=== PATIENT | male | born 1955 | race Caucasian/White ===

== ENCOUNTER 2023-08-28 08:37 | Emergency (ER) | payer MEDICARE, MEDICAID ==
[~2023-08-28] VITALS: Ht 182.9 cm; Wt 90.9 kg
[2023-08-28 09:14] VITALS: TEMP 99.5
[2023-08-28 14:32] VITALS: BP 122/63; PULSE 77; O2SAT 99
[2023-08-28] MEDS ORDERED: ketorolac trometh inj. 60 MG/2 ML VIAL IM ONE (15:10)
[2023-08-28 15:13] VITALS: RESP 20
== END 2023-08-28 15:52 | disposition home or self-care (01) ==
LOC: ER 08:38
DX: R53.83 Other fatigue (principal); R53.81 Other malaise; F17.200 Nicotine dependence, unspecified, uncomplicated
CPT/HCPCS: 96372; 99283; J1885

== ENCOUNTER 2023-09-28 01:16 | Emergency (ER) | payer MEDICAID, MEDICARE ==
[~2023-09-28] VITALS: Ht 193 cm; Wt 86.4 kg
[2023-09-28 01:20] VITALS: BP 151/76; PULSE 86; RESP 16; TEMP 98.1; O2SAT 97
== END 2023-09-28 02:17 ==
LOC: ER 01:17
DX: J18.9 Pneumonia, unspecified organism (principal); R05.9 Cough, unspecified; R59.1 Generalized enlarged lymph nodes; J44.9 Chronic obstructive pulmonary disease, unspecified; I50.9 Heart failure, unspecified; Z88.4 Allergy status to anesthetic agent; Z88.5 Allergy status to narcotic agent
CPT/HCPCS: 99283

== ENCOUNTER 2023-10-07 00:09 | Emergency (ER) | payer MEDICARE ==
[~2023-10-07] VITALS: Ht 193 cm; Wt 81.9 kg
[2023-10-07 00:33] VITALS: TEMP 98.2
[2023-10-07 08:35] VITALS: BP 113/70; PULSE 73; RESP 16; O2SAT 98
== END 2023-10-07 10:01 | disposition home or self-care (01) ==
LOC: ER 00:10
DX: Z00.00 Encounter for general adult medical examination without abnormal findings (principal); Z59.00 Homelessness unspecified; I50.9 Heart failure, unspecified; J44.9 Chronic obstructive pulmonary disease, unspecified; Z88.4 Allergy status to anesthetic agent; Z88.5 Allergy status to narcotic agent; Y92.89 Other specified places as the place of occurrence of the external cause
CPT/HCPCS: 99284

== ENCOUNTER 2023-10-20 11:00 | Emergency (ER) | payer MEDICARE ==
[~2023-10-20] VITALS: Ht 185.4 cm; Wt 75.4 kg
[2023-10-20 11:30] VITALS: BP 134/94; PULSE 99; RESP 18; TEMP 97.8; O2SAT 96
[2023-10-20] MEDS ORDERED: mupirocin 2% ointment 22GM TP ONE (13:00)
[2023-10-20] MEDS ORDERED: mupirocin 2% cream 15gm TP SCH (13:00)
== END 2023-10-20 14:06 | disposition home or self-care (01) ==
LOC: ER 11:01
DX: F20.9 Schizophrenia, unspecified (principal); I50.9 Heart failure, unspecified; Z88.5 Allergy status to narcotic agent; Z79.899 Other long term (current) drug therapy
CPT/HCPCS: 99284; A6449